=== PATIENT | female | born 1940 | race Caucasian/White ===

== ENCOUNTER → 2017-09-03 | Outpatient (CLI) | payer MEDICARE ==
[~2017-09-03] MED LIST: ATOR40TA78 PO; DILT120C80 PO; HYDR25TA6 PO; WARF2.5T73 PO
[2017-09-03 12:02] LABS: PATH.CAST-FLAG NOT PRESENT; SPERM-FLAG NOT PRESENT; SRC-FLAG NOT PRESENT; XTAL-FLAG NOT PRESENT; YLC-FLAG NOT PRESENT
[2017-09-03 12:12] LABS: HEMATOCRIT 43.8 % (34.6-47.8); HEMOGLOBIN 14.9 g/dL (11.7-16.4); WHITE BLOOD COUNT 6.6 x10^3/uL (3.4-10)
[2017-09-03 12:31] LABS: ASPARTATE AMINO TRANSFERASE 32 U/L (15-37); BLOOD UREA NITROGEN 13 mg/dL (7-18)
== END | disposition home or self-care (01) ==
LOC: STAR 10:35
PROVIDERS: ATTEND Neurological Surgery
DX: Z01.818 Encounter for other preprocedural examination (principal); M47.812 Spondylosis without myelopathy or radiculopathy, cervical region; S13.140A Subluxation of C3/C4 cervical vertebrae, initial encounter; S13.150A Subluxation of C4/C5 cervical vertebrae, initial encounter; S13.160A Subluxation of C5/C6 cervical vertebrae, initial encounter; R79.1 Abnormal coagulation profile; R82.99 Other abnormal findings in urine; X58.XXXA Exposure to other specified factors, initial encounter; Y93.89 Activity, other specified; Y92.89 Other specified places as the place of occurrence of the external cause; Y99.8 Other external cause status
CPT/HCPCS: 36415; 71020; 72050; 80053; 81001; 85025; 85610; 85730; 87086; 93005

== ENCOUNTER → 2017-09-03 | Outpatient (CLI) | payer MEDICARE ==
[2017-09-07 12:07] LABS: A/G RATIO 1.3 (0.7-1.7); ALBUMIN 4.1 g/dL (2.9-4.4); ALPHA-1-GLOBULIN 0.3 g/dL (0.0-0.4); BETA GLOBULIN 1.1 g/dL (0.7-1.3); IMMUNOGLOBULIN A 215 mg/dL (64-422); IMMUNOGLOBULIN G 778 mg/dL (700-1600); IMMUNOGLOBULIN M 156 mg/dL (26-217); PROTEIN TOTAL 7.3 g/dL (6.0-8.5)
== END | disposition home or self-care (01) ==
LOC: LAB 11:54
PROVIDERS: ATTEND Psychiatry & Neurology Neurology
DX: G62.89 Other specified polyneuropathies (principal)
CPT/HCPCS: 36415; 82784; 84155; 84156; 84165; 86334

== ENCOUNTER 2017-09-12 10:37 | Inpatient (IN) | payer MEDICARE ==
[2017-09-03 11:54] VITALS: BP 151/78
[~2017-09-12] VITALS: Ht 162.6 cm; Wt 52.2 kg
[~2017-09-12 10:37] MED LIST changes: +BACITRACIN 50,000 UNIT ONE; +BUPIVACAINE/PF 0.5% ONE; +EPINEPHRINE 1 MG/ML, 1ML ONE; +THROMBIN 5,000 UNIT VIAL TP ONE
[2017-09-12] MEDS ORDERED: ACET325T14 PO (13:55)
[2017-09-12] MEDS ORDERED: LACTATED RINGERS 1,000 ML IV SCH (13:55)
[2017-09-12] MEDS ORDERED: LIDOCAINE 1%, 2ML SQ PRN (14:00)
[2017-09-12] MEDS ORDERED: REMIFENTANIL 2 MG ONE (15:12)
[2017-09-12] MEDS ORDERED: FENTANYL PF 100 MCG/2ML ONE (15:13)
[2017-09-12] MEDS ORDERED: MIDAZOLAM 1 MG/ML, 2ML ONE (15:13)
[2017-09-12] MEDS ORDERED: PROPOFOL 50 ML ONE (15:32)
[2017-09-12] MEDS ORDERED: HYDROmorphone 2 MG/ML, 1ML ONE (16:26)
[2017-09-12] MEDS ORDERED: FENTANYL PF 100 MCG/2ML IV PRN (16:30)
[2017-09-12] MEDS ORDERED: ACETAMINOPHEN 325 MG TABLET PO PRN ×2 (16:30→17:30)
[2017-09-12] MEDS ORDERED: METOPROLOL 1 MG/ML, 5ML IV PRN (16:30)
[2017-09-12] MEDS ORDERED: hydrALAzine 20 MG/ML, 1ML IV PRN (16:30)
[2017-09-12] MEDS ORDERED: ALBUTEROL SULFATE 2.5 MG/3 ML NPPB PRN (16:30)
[2017-09-12] MEDS ORDERED: HYDROcodone/APAP 7.5-325MG/15ML UDC PO PRN (16:30)
[2017-09-12] MEDS ORDERED: EPHEDRINE 50 MG/ML, 1ML IVPush PRN (16:30)
[2017-09-12] MEDS ORDERED: MIDAZOLAM 1 MG/ML, 2ML IV PRN (16:30)
[2017-09-12] MEDS ORDERED: ONDANSETRON 2MG/ML, 2ML IVPush PRN ×2 (16:30→17:30)
[2017-09-12] MEDS ORDERED: DIAZEPAM 5 MG/ML, 2ML IVPush PRN (16:30)
[2017-09-12] MEDS ORDERED: LABETALOL 5MG/ML, 20ML IV PRN (16:30)
[2017-09-12] MEDS ORDERED: OXYcodone 5 MG/5 ML ORAL.SOL UDC PO PRN (16:30)
[2017-09-12] MEDS ORDERED: PROMETHAZINE 25 MG/ML, 1ML IV PRN (16:30)
[2017-09-12] MEDS ORDERED: MEPERIDINE/PF 25MG/0.5ML IVPush PRN (16:30)
[2017-09-12] MEDS ORDERED: SUCCINYLCHOLINE 20 MG/ML, 10ML ONE (17:07)
[2017-09-12] MEDS ORDERED: ROCURONIUM 10 MG/ML ONE (17:07)
[2017-09-12] MEDS ORDERED: ONDANSETRON 2MG/ML, 2ML ONE (17:07)
[2017-09-12] MEDS ORDERED: CEFAZOLIN 1,000 MG ONE (17:07)
[2017-09-12] MEDS ORDERED: DEXAMETHASONE 4 MG/ML, 1ML ONE (17:07)
[2017-09-12] MEDS ORDERED: PROPOFOL 10 MG/ML, 20ML ONE (17:07)
[2017-09-12] MEDS ORDERED: HYDROmorphone 2MG TABLET PO PRN (17:30)
[2017-09-12] MEDS ORDERED: BISACODYL 10 MG SUPP PR PRN (17:30)
[2017-09-12] MEDS ORDERED: PROMETHAZINE 25 MG/ML, 1ML IM PRN (17:30)
[2017-09-12] MEDS ORDERED: DIPHENHYDRAMINE 50 MG/ML, 1ML IVPush PRN (17:30)
[2017-09-12] MEDS ORDERED: PHARMACY MAY ADJ FOR RENAL FX MC PRN (17:30)
[2017-09-12] MEDS ORDERED: MAGNESIUM HYDROXIDE 8%, 30ML UDC PO PRN (17:30)
[2017-09-12] MEDS ORDERED: ACETAMINOPHEN 650 MG/20.3 ML UDC ONE (17:53)
[2017-09-12] MEDS ORDERED: HYDROmorphone 1 MG/ML, 1ML ONE (17:53)
[2017-09-12] MEDS ORDERED: OXYcodone 5 MG/5 ML ORAL.SOL UDC ONE (17:53)
[2017-09-12] MEDS: HYDROmorphone 1 MG/ML, 1ML IV PRN ×2 (17:55→19:40)
[2017-09-12] MEDS: TIZANIDINE 4MG TABLET PO SCH (20:59)
[2017-09-12] MEDS: ATORVASTATIN 10 MG TABLET PO SCH (20:59)
[2017-09-12] MEDS: NS + 20MEQ KCL 1,000 ML IV SCH (21:48)
[2017-09-12] MEDS: SODIUM CHLORIDE FLUSH 10ML SYR IVF SCH (21:48)
[2017-09-12] MEDS ORDERED: CEFAZOLIN 1,000 MG in SODIUM CHLORIDE 0.9% 50 ML IV SCH (23:30)
[2017-09-13] MEDS: CEFAZOLIN PMX 1GM/50ML 50 ML IV SCH ×2 (01:14→08:20)
[2017-09-13 02:20] VITALS: BP 102/57
[2017-09-13 04:00] VITALS: BP 94/59
[2017-09-13] MEDS: TIZANIDINE 4MG TABLET PO SCH ×3 (05:30→20:08)
[2017-09-13] MEDS: NS + 20MEQ KCL 1,000 ML IV SCH ×3 (07:00→20:09)
[2017-09-13 07:36] VITALS: BP 98/61
[2017-09-13] MEDS: HYDROCHLOROTHIAZIDE 12.5 MG CAPSULE PO SCH (08:00)
[2017-09-13] MEDS: SENNA/DOCUSATE TABLET PO SCH (08:01)
[2017-09-13] MEDS: SODIUM CHLORIDE FLUSH 10ML SYR IVF SCH ×2 (08:01→20:08)
[2017-09-13] MEDS: DILTIAZEM 120 MG CAP.ER.24H PO SCH (08:01)
[2017-09-13] MEDS: DIAZEPAM 5 MG TABLET PO PRN (10:56)
[2017-09-13 14:00] VITALS: BP 97/55
[2017-09-13 18:48] VITALS: BP 111/68
[2017-09-13] MEDS: ATORVASTATIN 10 MG TABLET PO SCH (20:08)
[2017-09-14 02:00] VITALS: BP 114/64
[2017-09-14] MEDS: TIZANIDINE 4MG TABLET PO SCH (05:12)
[2017-09-14 07:13] VITALS: BP 113/63
[2017-09-14] MEDS: DIAZEPAM 5 MG TABLET PO PRN (07:56)
[2017-09-14] MEDS: SODIUM CHLORIDE FLUSH 10ML SYR IVF SCH (09:00)
[2017-09-14] MEDS: DILTIAZEM 120 MG CAP.ER.24H PO SCH (09:00)
[2017-09-14] MEDS: SENNA/DOCUSATE TABLET PO SCH (09:00)
[2017-09-14] MEDS: HYDROCHLOROTHIAZIDE 12.5 MG CAPSULE PO SCH (09:00)
[2017-09-14] MEDS ORDERED: TIZA2CAP2 PO (11:05)
[2017-09-14] MEDS ORDERED: TRAM50TA2 PO (11:06)
== END 2017-09-14 11:30 | disposition home or self-care (01) | DRG 471 ==
LOC: ORIP 13:11 → 4NOR 20:03 → DCLOUNGE 09-14 10:41
PROVIDERS: ADMIT Neurological Surgery; ATTEND Neurological Surgery
PROC: 0RG10A0 Fusion of Cervical Vertebral Joint with Interbody Fusion Device, Anterior Approach, Anterior Column, Open Approach (ICD-10-PCS; 2017-09-12)
PROC: 0RB30ZZ Excision of Cervical Vertebral Disc, Open Approach (ICD-10-PCS; principal; 2017-09-12 16:00)
DX: M50.122 Cervical disc disorder at C5-C6 level with radiculopathy (principal); E43 Unspecified severe protein-calorie malnutrition; I48.91 Unspecified atrial fibrillation; E78.00 Pure hypercholesterolemia, unspecified; I10 Essential (primary) hypertension; M77.9 Enthesopathy, unspecified; M40.202 Unspecified kyphosis, cervical region
CPT/HCPCS: 36415; 72040; 85610; 85730; 86850; 86900; 95938; 95941; C1713; J0171; J0690; J1100; J1170; J2250; J2405; J2704; J3010; J3480; J3490; C1781; J0330; J7120